=== PATIENT | female | born 1980 | race Caucasian/White ===

== ENCOUNTER → 2020-10-10 | Outpatient (CLI) | payer SELFPAY ==
[2020-10-12 16:10] LABS: QUANTIFERON NIL VALUE 0.19 IU/mL (.); QUANTIFERON TB2 AG VALUE 0.21 IU/mL (.); QUANTIFERON-TB GOLD PLUS Negative (Negative)
[2020-10-13 01:10] LABS: CHLAMYDIA TRACHOMATIS, NAA Negative (Negative)
== END | disposition home or self-care (01) ==
LOC: LAB 17:18 → LAB SHORT 17:18
PROVIDERS: Family Medicine
DX: Z11.1 Encounter for screening for respiratory tuberculosis (principal)
CPT/HCPCS: 86480; 87491; 87591

== ENCOUNTER → 2020-10-20 | Outpatient (CLI) | payer SELFPAY | LOC: LAB 14:00 → LAB SHORT 14:00 | DX: Z11.3 Encounter for screening for infections with a predominantly sexual mode of transmission (principal) | CPT/HCPCS: 86592 ==

== ENCOUNTER 2022-08-29 00:43 | Day surgery (SDC) | payer BC | END 2022-08-29 23:15 | disposition home or self-care (01) | LOC: WOUND 00:43 | DX: T81.89XA Other complications of procedures, not elsewhere classified, initial encounter (principal); Z85.3 Personal history of malignant neoplasm of breast; Z90.13 Acquired absence of bilateral breasts and nipples; Z88.5 Allergy status to narcotic agent | CPT/HCPCS: A9270; G0463 ==

== ENCOUNTER 2022-09-07 01:53 | Day surgery (SDC) | payer BC | END 2022-09-07 23:11 | disposition home or self-care (01) | LOC: WOUND 01:53 | DX: T81.89XA Other complications of procedures, not elsewhere classified, initial encounter (principal); Z85.3 Personal history of malignant neoplasm of breast; Z90.13 Acquired absence of bilateral breasts and nipples | CPT/HCPCS: A9270 ==

== ENCOUNTER 2022-09-14 00:45 | Day surgery (SDC) | payer BC | END 2022-09-14 23:17 | disposition home or self-care (01) | LOC: WOUND 00:45 | DX: T81.89XA Other complications of procedures, not elsewhere classified, initial encounter (principal); Z98.86 Personal history of breast implant removal; Z90.13 Acquired absence of bilateral breasts and nipples | CPT/HCPCS: A9270; G0463 ==

== ENCOUNTER 2022-09-28 01:34 | Day surgery (SDC) | payer BC | END 2022-09-29 23:36 | disposition home or self-care (01) | LOC: WOUND 01:34 | DX: T81.89XA Other complications of procedures, not elsewhere classified, initial encounter (principal) ==

== ENCOUNTER 2022-10-19 08:00 | Day surgery (SDC) | payer BC | END 2022-10-19 23:59 | disposition home or self-care (01) | LOC: WOUND 08:00 | DX: S31.105A Unspecified open wound of abdominal wall, periumbilic region without penetration into peritoneal cavity, initial encounter (principal) | CPT/HCPCS: G0463 ==

== ENCOUNTER 2023-11-22 11:21 | Emergency (ER) | payer BC ==
[~2023-11-22] VITALS: Ht 162.6 cm; Wt 65.8 kg
[2023-11-22] MEDS ORDERED: IBUP600 PO (11:30)
[2023-11-22] MEDS ORDERED: Ketorolac Tromethamine 30mg Vial IV ONE (11:35)
[2023-11-22] MEDS ORDERED: LORazepam 2 MG/ML 1ML Injection IV ONE (11:35)
[2023-11-22 11:39] LABS: BASOPHILS ABSOLUTE AUTO 0.05 K/mm3 (0.00-0.23); BASOPHILS PERCENT AUTO 1 % (0-2); EOSINOPHILS ABSOLUTE AUTO 0.12 K/mm3 (0.00-0.68); EOSINOPHILS PERCENT AUTO 2 % (0-6); Hemoglobin 15.3 g/dL (11.5-16.0); IMMATURE GRAN ABSOLUTE AUTO 0.04 K/mm3 (0.00-0.10); IMMATURE GRAN PERCENT AUTO 1 % (0-1); LYMPHOCYTES ABSOLUTE AUTO 2.63 K/mm3 (0.84-5.20); LYMPHOCYTES PERCENT AUTO 33 % (21-46); MONOCYTES ABSOLUTE AUTO 0.47 K/mm3 (0.16-1.47); MONOCYTES PERCENT AUTO 6 % (4-13); Mean Corpuscular HGB 31.7 pg (26.0-34.0); Mean Corpuscular HGB Conc 34.8 g/dL (31.5-36.5); Mean Corpuscular Volume 91 fL (80-100); NEUTROPHILS ABSOLUTE AUTO 4.65 K/mm3 (1.96-9.15); NEUTROPHILS PERCENT AUTO 59 % (41-73); Platelet Count 271 K/mm3 (150-400); RDW Coefficient Variation 11.6 % (11.7-14.2); RDW Standard Deviation 38.8 fL (35.1-46.3); Red Blood Cell Count 4.83 M/mm3 (3.80-5.20); White Blood Cell Count 7.96 K/mm3 (4.00-11.30)
[2023-11-22 12:16] LABS: Albumin, Blood 4.1 g/dL (3.4-5.0); Albumin/Globulin Ratio 1.1 (0.8-1.8); Bilirubin, Total 0.4 mg/dL (0.1-1.0); Bun/Creatinine Ratio 16.9 (12.0-20.0); Calcium, Blood 9.5 mg/dL (8.5-10.1); Creatinine, Blood 0.77 mg/dL (0.40-1.00); Globulin, Blood 3.6 g/dL (2.2-4.0); Potassium, Blood 3.6 mmol/L (3.5-5.5); Total Protein, Blood 7.7 g/dL (6.4-8.2)
[2023-11-22 13:38] VITALS: BP 110/74
== END 2023-11-22 13:42 | disposition home or self-care (01) ==
LOC: ER 11:21
PROVIDERS: Emergency Medicine
DX: T75.89XA Other specified effects of external causes, initial encounter (principal); Z88.5 Allergy status to narcotic agent
CPT/HCPCS: 71045; 80053; 83690; 84703; 85025; 93005; 93010; 96374; 96375; 99285-25; J1885; J2060